=== PATIENT | male | born 1960 | race Caucasian/White ===

== ENCOUNTER 2020-04-22 16:11 | Emergency (ER) | payer MEDICAID ==
[~2020-04-22] VITALS: Ht 177.8 cm; Wt 72.0 kg
[2020-04-22 18:13] LABS: CHLORIDE 114 mEq/L (98-107)
[2020-04-22 18:14] LABS: BASOPHILS % 1.3 % (0.0-2.0); EOSINOPHILS % 2.7 % (0.0-5.0); HEMOGLOBIN. 12.1 g/dL (14.0-18.0); LYMPHOCYTES % 44.2 % (20.0-50.0); MEAN CORPUSCULAR HEMOGLOBIN 36.7 pg (28.0-32.0); MEAN CORPUSCULAR VOLUME 105.8 fL (80.0-94.0); MEAN PLATELET VOLUME 8.2 fl (7.4-10.4); MONOCYTES % 11.8 % (2.0-8.0); PLATELET 67 x1000/uL (130-400); RED BLOOD CELL COUNT 3.31 mill/uL (4.7-6.1); RED CELL DISTRIBUTION WIDTH 16.6 % (11.6-14.6)
[2020-04-22 18:39] LABS: ETHANOL BLOOD 404 mg/dL
[2020-04-22 22:52] LABS: CLARITY URINE CLEAR (CLEAR); COLOR URINE DARK YELLOW (YELLOW); KETONES URINE NEGATIVE (NEGATIVE); LEUKOCYTE ESTERASE URINE NEGATIVE (NEGATIVE); NITRITE URINE NEGATIVE (NEGATIVE); OCCULT BLOOD URINE NEGATIVE (NEGATIVE); PROTEIN URINE NEGATIVE (NEGATIVE); SPECIFIC GRAVITY URINE 1.016 (1.005-1.030)
[2020-04-22 23:10] LABS: *AMPHETAMINES SCREEN URINE NEGATIVE (NEGATIVE); *BARBITURATES SCREEN URINE NEGATIVE (NEGATIVE); *BENZODIAZEPINES SCREEN URINE NEGATIVE (NEGATIVE); *COCAINE SCREEN URINE NEGATIVE (NEGATIVE); METHADONE URINE SCREEN NEGATIVE (NEGATIVE)
[2020-04-22 23:11] LABS: CANNABINOID URINE SCREEN PRESUMTIVE POSITIVE (NEGATIVE); OPIATES URINE SCREEN NEGATIVE (NEGATIVE); PHENCYCLIDINE URINE SCREEN NEGATIVE (NEGATIVE)
[2020-04-23 10:44] VITALS: BP 127/69
== END 2020-04-23 10:54 ==
LOC: EDBD 16:11 → ER 16:11
DX: F10.129 Alcohol abuse with intoxication, unspecified (principal); Y90.8 Blood alcohol level of 240 mg/100 ml or more; R45.851 Suicidal ideations
CPT/HCPCS: 36415; 80053; 80305; 80307; 80320; 80329; 81003; 85025; 93005; 99285; G0480

== ENCOUNTER 2020-05-05 11:36 | Emergency (ER) | payer MEDICAID ==
[~2020-05-05] VITALS: Ht 177.8 cm; Wt 70.0 kg
[2020-05-05 12:41] LABS: EOSINOPHILS % 5.9 % (0.0-5.0); HEMATOCRIT. 36.4 % (42.0-52.0); HEMOGLOBIN. 12.6 g/dL (14.0-18.0); MEAN CORPUSCULAR HEMOGLOBIN 36.9 pg (28.0-32.0); MEAN CORPUSCULAR VOLUME 106.7 fL (80.0-94.0); MEAN PLATELET VOLUME 8.5 fl (7.4-10.4); MONOCYTES % 12.9 % (2.0-8.0); NEUTROPHILS % 33.2 % (40.0-76.0); RED BLOOD CELL COUNT 3.41 mill/uL (4.7-6.1); RED CELL DISTRIBUTION WIDTH 15.8 % (11.6-14.6)
[2020-05-05 12:42] LABS: CHLORIDE 110 mEq/L (98-107)
[2020-05-05 12:44] LABS: PLATELET 50 x1000/uL (130-400)
[2020-05-05 13:00] LABS: ETHANOL BLOOD 352 mg/dL
[2020-05-05 13:50] LABS: PLATELET ESTIMATE DECREASED
[2020-05-05] MEDS ORDERED: POTASSIUM CHLORIDE 20MEQ TABLET SR PO ONE (14:15)
[2020-05-05 21:22] VITALS: BP 104/62
== END 2020-05-05 21:23 | disposition home or self-care (01) ==
LOC: ER 11:36
DX: T51.0X1A Toxic effect of ethanol, accidental (unintentional), initial encounter (principal); F32.9 Major depressive disorder, single episode, unspecified; R45.851 Suicidal ideations; E87.6 Hypokalemia; J45.909 Unspecified asthma, uncomplicated; H54.7 Unspecified visual loss; F17.210 Nicotine dependence, cigarettes, uncomplicated; Y90.8 Blood alcohol level of 240 mg/100 ml or more; Y92.018 Other place in single-family (private) house as the place of occurrence of the external cause
CPT/HCPCS: 36415; 80053; 80307; 80320; 80329; 85025; 93005; 99285; G0480

== ENCOUNTER 2020-07-04 20:04 | Emergency (ER) | payer MEDICAID, OTHER ==
[~2020-07-04] VITALS: Ht 167.6 cm; Wt 69.0 kg
[2020-07-04 20:07] VITALS: BP 150/80
== END 2020-07-04 21:00 | disposition home or self-care (01) ==
LOC: ER 20:04
DX: F41.9 Anxiety disorder, unspecified (principal)
CPT/HCPCS: 99281

== ENCOUNTER 2020-07-05 23:07 | Inpatient (IN) | payer OTHER ==
[~2020-07-05] VITALS: Ht 175.3 cm; Wt 68.0 kg
[2020-07-05] MEDS ORDERED: SODIUM CHLORIDE 0.9% 1,000 ML IV ONE (23:30)
[2020-07-05] MEDS ORDERED: MORPHINE SULFATE 4 MG/ML CPJ (NOT FOR IM USE) IV ONE (23:30)
[2020-07-05 23:54] LABS: BASOPHILS % 0.2 % (0.0-2.0); EOSINOPHILS % 0.1 % (0.0-5.0); LYMPHOCYTES % 14.7 % (20.0-50.0); MEAN CORPUSCULAR HEMOGLOBIN 33.7 pg (28.0-32.0); MEAN CORPUSCULAR VOLUME 99.7 fL (80.0-94.0); MEAN PLATELET VOLUME 8.9 fl (7.4-10.4); MONOCYTES % 11.1 % (2.0-8.0); NEUTROPHILS % 73.9 % (40.0-76.0); PLATELET 122 x1000/uL (130-400); RED BLOOD CELL COUNT 1.88 mill/uL (4.7-6.1); RED CELL DISTRIBUTION WIDTH 19.7 % (11.6-14.6)
[2020-07-05 23:55] LABS: CHLORIDE 106 mEq/L (98-107)
[2020-07-05 23:59] LABS: INR 1.9; PROTHROMBIN TIME 19.5 sec (9.6-11.0)
[2020-07-06] VITALS (20 sets, daily range): BP systolic 80–117; BP diastolic 45–92
[2020-07-06] MEDS ORDERED: ONDANSETRON HCL 4MG/2ML INJ IV ONE
[2020-07-06 00:06] LABS: HEMATOCRIT. 18.8 % (42.0-52.0); HEMOGLOBIN. 6.3 g/dL (14.0-18.0)
[2020-07-06] MEDS ORDERED: PANTOPRAZOLE SODIUM 40 MG/VIAL IV STA (00:07)
[2020-07-06] MEDS ORDERED: OCTREOTIDE ACETATE 50 MCG/ML 1ML IV STA (00:07)
[2020-07-06] MEDS ORDERED: LORAZEPAM 2MG/ML CPJ IV ONE (00:45)
[2020-07-06] MEDS ORDERED: CHLORDIAZEPOXIDE 25MG CAPSULE PO ONE (00:45)
[2020-07-06] MEDS ORDERED: ONDANSETRON HCL 4MG/2ML INJ IV PRN (05:00)
[2020-07-06] MEDS ORDERED: PANTOPRAZOLE 80 MG in SODIUM CHLORIDE 0.9% 100 ML IV SCH ×2 (06:00→14:00)
[2020-07-06] MEDS ORDERED: OCTREOTIDE ACETATE 50 MCG/ML 1ML IV SCH (06:00)
[2020-07-06] MEDS ORDERED: MORPHINE SULFATE 2 MG/ML CPJ (NOT FOR IM USE) IV NR (11:30)
[2020-07-06] MEDS: FOLIC ACID 1 MG, THIAMINE HCL 100 MG, MVI, ADULT NO.1 10 ML in DEXTROSE 5% WATER 1,000 ML IV SCH ×4 (14:13)
[2020-07-06] MEDS: CHLORDIAZEPOXIDE 25MG CAPSULE PO SCH ×2 (14:13→21:49)
[2020-07-06 16:08] LABS: BASOPHILS % 0.3 % (0.0-2.0); EOSINOPHILS % 2.1 % (0.0-5.0); HEMATOCRIT. 23.5 % (42.0-52.0); LYMPHOCYTES % 12.6 % (20.0-50.0); MEAN CORPUSCULAR HEMOGLOBIN 30.9 pg (28.0-32.0); MEAN CORPUSCULAR VOLUME 90.7 fL (80.0-94.0); MEAN PLATELET VOLUME 8.8 fl (7.4-10.4); RED BLOOD CELL COUNT 2.59 mill/uL (4.7-6.1); RED CELL DISTRIBUTION WIDTH 21.8 % (11.6-14.6)
[2020-07-06 16:29] LABS: CHLORIDE 108 mEq/L (98-107)
[2020-07-06] MEDS: PANTOPRAZOLE SODIUM 40 MG/VIAL IV SCH (17:54)
[2020-07-06 18:07] LABS: PLATELET ESTIMATE DECREASED
[2020-07-06 18:11] LABS: PLATELET 50 x1000/uL (130-400)
[2020-07-06] MEDS ORDERED: OCTREOTIDE 1,000 MCG in SODIUM CHLORIDE 0.9% 100 ML IV ONE (19:30)
[2020-07-06] MEDS: LACTULOSE 20G/30ML UDC PO SCH (21:49)
[2020-07-06] MEDS: OCTREOTIDE 1,000 MCG in SODIUM CHLORIDE 0.9% 100 ML IV SCH (22:12)
[2020-07-07] VITALS: BP 76/51
[2020-07-07 04:00] VITALS: BP 86/53
[2020-07-07] MEDS: CHLORDIAZEPOXIDE 25MG CAPSULE PO SCH ×3 (06:48→21:19)
[2020-07-07] MEDS: LACTULOSE 20G/30ML UDC PO SCH ×4 (06:48→22:00)
[2020-07-07 07:17] LABS: INR 1.8; PROTHROMBIN TIME 18.7 sec (9.6-11.0)
[2020-07-07 07:20] LABS: CHLORIDE 108 mEq/L (98-107)
[2020-07-07 07:21] LABS: BASOPHILS % 0.8 % (0.0-2.0); EOSINOPHILS % 7.4 % (0.0-5.0); HEMATOCRIT. 22.7 % (42.0-52.0); HEMOGLOBIN. 7.6 g/dL (14.0-18.0); MEAN CORPUSCULAR HEMOGLOBIN 30.6 pg (28.0-32.0); MEAN CORPUSCULAR VOLUME 90.8 fL (80.0-94.0); MEAN PLATELET VOLUME 8.6 fl (7.4-10.4); MONOCYTES % 10.1 % (2.0-8.0); NEUTROPHILS % 46.7 % (40.0-76.0); RED CELL DISTRIBUTION WIDTH 21.5 % (11.6-14.6)
[2020-07-07 07:28] LABS: TOTAL IRON BINDING CAPACITY 192 ug/dL (250-450)
[2020-07-07 07:35] LABS: PLATELET 50 x1000/uL (130-400)
[2020-07-07 08:00] VITALS: BP 100/62
[2020-07-07 08:12] LABS: FOLIC ACID (FOLATE) SERUM 18.8 ng/mL (>5.38)
[2020-07-07] MEDS: PANTOPRAZOLE SODIUM 40 MG/VIAL IV SCH ×2 (10:01→21:19)
[2020-07-07] MEDS: FOLIC ACID 1 MG, THIAMINE HCL 100 MG, MVI, ADULT NO.1 10 ML in DEXTROSE 5% WATER 1,000 ML IV SCH ×4 (10:01)
[2020-07-07 12:00] VITALS: BP 100/54
[2020-07-07] MEDS ORDERED: TRAMADOL 50MG TABLET PO PRN (12:30)
[2020-07-07] MEDS: MIDODRINE HCL 5MG TABLET PO SCH ×2 (15:10→17:05)
[2020-07-07 16:00] VITALS: BP 100/60
[2020-07-07 20:00] VITALS: BP 103/41
[2020-07-07] MEDS: OCTREOTIDE 1,000 MCG in SODIUM CHLORIDE 0.9% 100 ML IV SCH (21:33)
[2020-07-08] VITALS (7 sets, daily range): BP systolic 84–127; BP diastolic 54–74
[2020-07-08] MEDS: CHLORDIAZEPOXIDE 25MG CAPSULE PO SCH ×2 (06:46→13:52)
[2020-07-08] MEDS: LACTULOSE 20G/30ML UDC PO SCH ×2 (06:46→06:50)
[2020-07-08 08:54] LABS: BASOPHILS % 0.7 % (0.0-2.0); EOSINOPHILS % 7.1 % (0.0-5.0); LYMPHOCYTES % 27.3 % (20.0-50.0); MEAN CORPUSCULAR HEMOGLOBIN 31.2 pg (28.0-32.0); MEAN CORPUSCULAR VOLUME 92.7 fL (80.0-94.0); MEAN PLATELET VOLUME 8.4 fl (7.4-10.4); MONOCYTES % 14.1 % (2.0-8.0); NEUTROPHILS % 50.8 % (40.0-76.0); RED BLOOD CELL COUNT 3.01 mill/uL (4.7-6.1); RED CELL DISTRIBUTION WIDTH 21.5 % (11.6-14.6)
[2020-07-08 09:08] LABS: CHLORIDE 107 mEq/L (98-107)
[2020-07-08 09:24] LABS: HEMOGLOBIN. 9.4 g/dL (14.0-18.0)
[2020-07-08 09:25] LABS: HEMATOCRIT. 27.9 % (42.0-52.0); PLATELET 50 x1000/uL (130-400)
[2020-07-08] MEDS: PANTOPRAZOLE SODIUM 40 MG/VIAL IV SCH (09:59)
[2020-07-08] MEDS: MIDODRINE HCL 5MG TABLET PO SCH ×3 (10:00→18:01)
[2020-07-08 10:33] LABS: PLATELET ESTIMATE MARKEDLY DECREASED
[2020-07-08] MEDS ORDERED: SODIUM CHLORIDE 0.9% 500 ML IV ONE (11:30)
== END 2020-07-08 20:10 | disposition short-term general hospital (02) | DRG 253 ==
LOC: ER 23:07 → 8WST 07-06 00:30 → ENRESERV 07-06 02:29 → 8WST 07-06 04:42
PROVIDERS: ADMIT Internal Medicine; ATTEND Internal Medicine
PROC: 30233K1 Transfusion of Nonautologous Frozen Plasma into Peripheral Vein, Percutaneous Approach (ICD-10-PCS; principal; 2020-07-06)
PROC: 30233N1 Transfusion of Nonautologous Red Blood Cells into Peripheral Vein, Percutaneous Approach (ICD-10-PCS; 2020-07-06)
DX: K92.2 Gastrointestinal hemorrhage, unspecified (principal); K74.60 Unspecified cirrhosis of liver; B19.20 Unspecified viral hepatitis C without hepatic coma; E43 Unspecified severe protein-calorie malnutrition; J45.909 Unspecified asthma, uncomplicated; R74.01 Elevation of levels of liver transaminase levels; E72.20 Disorder of urea cycle metabolism, unspecified; M87.9 Osteonecrosis, unspecified; D53.9 Nutritional anemia, unspecified; D68.9 Coagulation defect, unspecified; F10.239 Alcohol dependence with withdrawal, unspecified; F17.210 Nicotine dependence, cigarettes, uncomplicated; J44.9 Chronic obstructive pulmonary disease, unspecified; K76.6 Portal hypertension; K92.0 Hematemesis; M16.11 Unilateral primary osteoarthritis, right hip; R18.8 Other ascites; F41.9 Anxiety disorder, unspecified; Z68.22 Body mass index [BMI] 22.0-22.9, adult; Z71.41 Alcohol abuse counseling and surveillance of alcoholic
CPT/HCPCS: 36415; 74176; 76700; 80048; 80053; 82140; 82247; 82248; 82607; 82746; 83540; 83550; 84450; 84460; 85025; 86850; 86900; 86920; 86927; 93005; 99291; C9113; J2060; J2270; J2354; J2405; J3411; J3490; J7030; J7050; J7070; P9016; P9017

== ENCOUNTER 2020-12-23 12:32 | Inpatient (IN) | payer MEDICAID ==
[~2020-12-23] VITALS: Ht 175.3 cm; Wt 67.6 kg
[2020-12-23 14:51] LABS: CHLORIDE 109 mEq/L (98-107)
[2020-12-23 14:54] LABS: INR 1.5; PROTHROMBIN TIME 15.2 sec (9.6-11.0)
[2020-12-23] MEDS ORDERED: FOLIC ACID 1 MG, THIAMINE HCL 100 MG in SODIUM CHLORIDE 0.9% 1,000 ML IV NR (16:30)
[2020-12-23] MEDS ORDERED: LORAZEPAM 2MG/ML CPJ IV PRN (16:30)
[2020-12-23] MEDS ORDERED: CLONIDINE 0.1MG TABLET PO PRN (16:30)
[2020-12-23] MEDS ORDERED: ACETAMINOPHEN 325MG TABLET PO PRN (16:30)
[2020-12-23] MEDS ORDERED: IPRATROPIUM/ALBUTEROL 0.5-3(2.5)MG/3ML NEB HHN PRN (16:30)
[2020-12-23] MEDS ORDERED: DIPHENHYDRAMINE 50MG/ML VIAL IV PRN (16:30)
[2020-12-23] MEDS ORDERED: MULTIVITAMINS,THER W-MINERALS TABLET PO NR (18:00)
[2020-12-23 21:52] LABS: BASOPHILS % 0.8 % (0.0-2.0); EOSINOPHILS % 2.4 % (0.0-5.0); HEMATOCRIT. 28.5 % (42.0-52.0); HEMOGLOBIN. 9.3 g/dL (14.0-18.0); LYMPHOCYTES % 29.3 % (20.0-50.0); MEAN CORPUSCULAR HEMOGLOBIN 33.3 pg (28.0-32.0); MEAN CORPUSCULAR VOLUME 102.6 fL (80.0-94.0); MEAN PLATELET VOLUME 7.2 fl (7.4-10.4); MONOCYTES % 13.5 % (2.0-8.0); PLATELET 100 x1000/uL (130-400); RED BLOOD CELL COUNT 2.78 mill/uL (4.7-6.1); RED CELL DISTRIBUTION WIDTH 23.2 % (11.6-14.6)
[2020-12-23] MEDS: CHLORDIAZEPOXIDE 25MG CAPSULE PO SCH (23:27)
[2020-12-24] VITALS (7 sets, daily range): BP systolic 98–132; BP diastolic 50–74
[2020-12-24] MEDS ORDERED: OCTREOTIDE 1,000 MCG in SODIUM CHLORIDE 0.9% 98 ML IV SCH (06:00)
[2020-12-24] MEDS ORDERED: PANTOPRAZOLE 80 MG in SODIUM CHLORIDE 0.9% 100 ML IV SCH (06:00)
[2020-12-24] MEDS: CHLORDIAZEPOXIDE 25MG CAPSULE PO SCH ×2 (08:00→14:00)
[2020-12-24] MEDS ORDERED: PANTOPRAZOLE SODIUM 40 MG/VIAL IV SCH (11:45)
[2020-12-24 20:18] LABS: HEMATOCRIT. 30.4 % (42.0-52.0); MEAN CORPUSCULAR HEMOGLOBIN 33.8 pg (28.0-32.0); MEAN CORPUSCULAR VOLUME 102.9 fL (80.0-94.0); PLATELET 96 x1000/uL (130-400); RED BLOOD CELL COUNT 2.95 mill/uL (4.7-6.1); RED CELL DISTRIBUTION WIDTH 23.1 % (11.6-14.6)
[2020-12-24 21:09] LABS: CHLORIDE 108 mEq/L (98-107)
[2020-12-24 21:11] LABS: CHLORIDE 109 mEq/L (98-107)
[2020-12-24 21:17] LABS: HDL CHOLESTEROL 44 mg/dL (40-59); LDL CHOLESTEROL 69 mg/dL (5-100)
[2020-12-24 21:21] LABS: PLATELET ESTIMATE DECREASED
== END 2020-12-24 22:00 | disposition short-term general hospital (02) | DRG 280 ==
LOC: ER 12:32 → 6EST 16:21 → EDBEDREQSVC 18:15 → ENRESERV 20:31 → EDBEDREQSVC 22:42 → 5EST 12-24 06:06
PROVIDERS: ADMIT Internal Medicine; ATTEND Internal Medicine
PROC: 0W9G3ZZ Drainage of Peritoneal Cavity, Percutaneous Approach (ICD-10-PCS; principal; 2020-12-24)
PROC: B54MZZA Ultrasonography of Right Upper Extremity Veins, Guidance (ICD-10-PCS; 2020-12-24)
PROC: 05HY33Z Insertion of Infusion Device into Upper Vein, Percutaneous Approach (ICD-10-PCS; 2020-12-24)
DX: K70.31 Alcoholic cirrhosis of liver with ascites (principal); D70.9 Neutropenia, unspecified; E46 Unspecified protein-calorie malnutrition; G93.40 Encephalopathy, unspecified; D68.9 Coagulation defect, unspecified; E88.09 Other disorders of plasma-protein metabolism, not elsewhere classified; E87.1 Hypo-osmolality and hyponatremia; R16.1 Splenomegaly, not elsewhere classified; D69.6 Thrombocytopenia, unspecified; F10.20 Alcohol dependence, uncomplicated; H54.61 Unqualified visual loss, right eye, normal vision left eye; B19.20 Unspecified viral hepatitis C without hepatic coma; D53.9 Nutritional anemia, unspecified; Z20.822 Contact with and (suspected) exposure to COVID-19; F41.9 Anxiety disorder, unspecified; J45.909 Unspecified asthma, uncomplicated; K80.20 Calculus of gallbladder without cholecystitis without obstruction; Y90.3 Blood alcohol level of 60-79 mg/100 ml; Z87.81 Personal history of (healed) traumatic fracture; Z68.22 Body mass index [BMI] 22.0-22.9, adult
CPT/HCPCS: 36415; 49083; 71045; 76705; 76937; 80053; 80061; 80320; 82140; 83735; 84443; 85025; 87426; 93005; 99285; C1725; C9113; J1200; J2060; J2354; J3411; J3490; J7030; J7050; G0480

== ENCOUNTER 2021-03-17 13:30 | Emergency (ER) | payer MEDICAID ==
[~2021-03-17] VITALS: Ht 172.7 cm; Wt 80.0 kg
[2021-03-17 15:00] LABS: CHLORIDE 106 mEq/L (98-107); INR 1.3; PROTHROMBIN TIME 14.1 sec (9.6-11.0)
[2021-03-17 15:20] LABS: EOSINOPHILS % 0.3 % (0.0-5.0); HEMATOCRIT. 27.2 % (42.0-52.0); HEMOGLOBIN. 9.8 g/dL (14.0-18.0); LYMPHOCYTES % 19.5 % (20.0-50.0); MEAN CORPUSCULAR HEMOGLOBIN 38.9 pg (28.0-32.0); MEAN CORPUSCULAR VOLUME 108.1 fL (80.0-94.0); MEAN PLATELET VOLUME 7.2 fl (7.4-10.4); MONOCYTES % 11.9 % (2.0-8.0); NEUTROPHILS % 67.3 % (40.0-76.0); PLATELET 183 x1000/uL (130-400); RED BLOOD CELL COUNT 2.52 mill/uL (4.7-6.1); RED CELL DISTRIBUTION WIDTH 17.2 % (11.6-14.6)
[2021-03-17 16:05] LABS: INR 1.3
[2021-03-17 22:59] VITALS: BP 119/78
== END 2021-03-17 23:00 | disposition short-term general hospital (02) ==
LOC: ER 13:30
DX: R14.0 Abdominal distension (gaseous) (principal); J45.909 Unspecified asthma, uncomplicated; Z20.822 Contact with and (suspected) exposure to COVID-19; Z98.890 Other specified postprocedural states
CPT/HCPCS: 36415; 80053; 83880; 84484; 85025; 86850; 86900; 87426; 99285